=== PATIENT | male | born 1970 | race American Indian/Alaskan Native ===

== ENCOUNTER 2017-10-17 08:10 | Emergency (ER) | payer OTHER ==
[2017-10-17 08:19] VITALS: BP 152/78
[2017-10-17] MEDS ORDERED: MOTRIN PO ONE (09:13)
[2017-10-17] MEDS ORDERED: MOTRIN ONE (09:14)
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
--- NOTE | 2017-10-17 10:18 | XRay Report ---
LUMBOSACRAL SPINE, 3 VIEWS: History: Back pain Findings: There is 5 mm anterolisthesis of L3 with respect to L2. This appears to be associated with facet arthropathy. No disruption of the posterior elements is appreciated. The remaining lumbar vertebra are in normal in height and alignment. There are moderate multilevel degenerative changes. No acute fracture is appreciated. Impression: Lumbar spondylosis. Grade 1/2 anterolisthesis of L3 respect to L2. No acute injury appreciated on x-ray.
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
== END 2017-10-17 10:35 | disposition home or self-care (01) ==
LOC: ED 08:10
DX: S16.1XXA Strain of muscle, fascia and tendon at neck level, initial encounter (principal); J45.909 Unspecified asthma, uncomplicated; Z87.891 Personal history of nicotine dependence; Z88.1 Allergy status to other antibiotic agents; V79.9XXA Bus occupant (driver) (passenger) injured in unspecified traffic accident, initial encounter; Y93.89 Activity, other specified; Y99.8 Other external cause status; Y92.410 Unspecified street and highway as the place of occurrence of the external cause
CPT/HCPCS: 72040; 72100